=== PATIENT | female | born 1985 | race Caucasian/White ===

== ENCOUNTER 2017-04-04 21:11 | Inpatient (IN) | payer OTHER, MEDICAID ==
[~2017-04-04] VITALS: Ht 162.6 cm; Wt 79.4 kg
[~2017-04-04 21:11] MED LIST: SUCR1S PO
[2017-04-04] MEDS ORDERED: LACTATED RINGER'S 1000 ML INJ 1,000 ML IV PRN (22:10)
[2017-04-04] MEDS ORDERED: LACTATED RINGER'S 1000 ML INJ 1,000 ML IV SCH (22:10)
[2017-04-04] MEDS ORDERED: ONDANSETRON HCL 4 MG/2 ML VIAL IV PUSH PRN (22:15)
[2017-04-04] MEDS ORDERED: CITRIC ACID-SODIUM CITRATE LIQ 30 ML UDC PO SCH (22:15)
[2017-04-04] MEDS ORDERED: OXYTOCIN 30 UNITS-500ML PREMIX 500 ML IV ONE (22:15)
[2017-04-04] MEDS ORDERED: MINERAL OIL 10 ML VIAL TOPICAL PRN (22:15)
[2017-04-04] MEDS ORDERED: LIDOCAINE HCL 1% 50 ML VIAL INFIL PRN (22:15)
[2017-04-04] MEDS ORDERED: LIDOCAINE HCL 1% 50 ML VIAL I-DERMAL PRN (22:15)
[2017-04-04] MEDS ORDERED: SODIUM CHLORID 0.9% 500 ML INJ 500 ML IV PRN (22:15)
[2017-04-04 22:24] LABS: BASOPHIL # 0.1 TH/MM3 (0-0.2); BASOPHIL % 0.4 % (0.0-2.0); EOSINOPHIL # 0.3 TH/MM3 (0-0.4); EOSINOPHIL % 1.7 % (0.0-4.0); HEMATOCRIT 37.1 % (35.0-46.0); HEMO FLAGS DIFF FINAL; LYMPH % 18.2 % (9.0-44.0); LYMPHOCYTE # 3.1 TH/MM3 (1.0-4.8); MEAN CELL VOLUME 96.4 FL (80.0-100.0); MEAN CORPUSCULAR HEMOGLOBIN 32.8 PG (27.0-34.0); MONO % 8.8 % (0.0-8.0); NEUT % 70.9 % (16.0-70.0); PLATELET COUNT 292 TH/MM3 (150-450); RED BLOOD COUNT 3.85 MIL/MM3 (4.00-5.30); RED CELL DISTRIBUTION WIDTH 12.7 % (11.6-17.2)
[2017-04-04 22:25] LABS: BACTERIA, URINE OCC /hpf; BLOOD, URINE TRACE (NEG); COMMENT (UR) CULT NOT INDICATED; CULTURE IF INDICATED CULT NOT INDICATED; GLUCOSE,URINE NEG (NEG); KETONE, URINE NEG (NEG); NITRITE,URINE NEG (NEG); SQUAMOUS EPITHELIAL CELL URINE 1 /hpf (0-5); URINE COLOR LIGHT-YELLOW (YELLW/STRAW)
--- NOTE | 2017-04-04 22:25 | PD ---
HPI Chief Complaint LATRELL brown Date Seen: Apr 04, 2017 Time Seen: 22:17 Travel History International Travel<30 Days: No Contact w/Intl Traveler<30Days: No Known Affected Area: No History of Present Illness HPI Pt is a 31y/o G1 @ 40.1wks. She has PNC with Dr. Ferreira. She presents with c/ o ctx which started at 17:30 and SROM at 20:15 (clear). She reports some spotting since being checked today in clinic (4cm). +FM. is complicated by a choroid plexus cyst which has not completely resolved yet. Weeks Gestation: 40 Para: 0 : 1 Last Menstrual Period: Apr 04, 2017 History Past Medical History Medical History: Denies Significant Hx Obstetric History Obstetric History 1. current Past Surgical History Narrative Surgical wisdom teeth extraction cholecystectomy appendectomy Family History Family History: Negative Social History Alcohol Use: No Tobacco Use: No (quit when she became ) Substance Abuse: No Allergies-Medications (Allergen,Severity, Reaction): Coded Allergies: No Known Allergies (Verified , 01/24/16) Home Meds Reported Medications Sucralfate (Carafate 1 Gm/10 Ml Udc) 1 Gm/10 Ml Susp, 1 GM PO TIDACHS Y for GERD , ML Take with water on an empty stomach. To reduce the potential of adversely affecting the absorption of other drugs, take other drugs 2 hours prior to Sucralfate. 01/21/16 Review of Systems Except as stated in HPI: all other systems reviewed are Neg Physical Exam Narrative GENERAL: Well-nourished, well-developed patient. SKIN: Warm and dry. HEAD: Normocephalic and atraumatic. EYES: No scleral icterus. No injection or drainage. ENT: No nasal drainage noted. Mucous membranes pink. Airway patent. ABDOMEN/GI: Abdomen soft, non-tender, gravid EXTREMITIES: No cyanosis BACK: Nontender without obvious deformity. NEUROLOGICAL: Awake and alert. Motor and sensory grossly within normal limits. FHTs: 120s, +accels, occasional variable decels, moderate variability, reactive TOCO: ctx q2-3m CVX: 6/80/-1 Data Data Vital Signs Reviewed: Yes Orders Orders Ob (2e) Additional Admit Info (04/04/17 21:40) Urinalysis - C+S If Indicated (04/04/17 22:00) Specimen To Be Collected PRN (04/04/17 22:00) Ob/Psych Drug Screen, Urine (04/04/17 22:00) Complete Blood Count With Diff (04/04/17 22:00) Hold Clot (04/04/17 22:00) Abo/Rh Blood Type (04/04/17 22:00) Vital Signs (Adult) .ON ADMISSION (04/04/17 22:10) ^ Labor Status (04/04/17 22:10) ^ Non Stress Test (04/04/17 22:10) Admit To Inpatient (04/04/17 ) Vital Signs (Adult) .Per protocol (04/04/17 22:10) Heart (04/04/17 22:10) Amnioinfusion (04/04/17 22:10) Urinary Catheter Management .ONCE (04/04/17 22:10) Diet Npo (04/05/17 Breakfast) Lactated Ringer's 1000 Ml Inj (Lr 1000 M (04/04/17 22:10) Lactated Ringer's 1000 Ml Inj (Lr 1000 M (04/04/17 22:10) Sodium Chlorid 0.9% 500 Ml Inj (Ns 500 M (04/04/17 22:15) Sodium Chlor 0.9% 1000 Ml Inj (Ns 1000 M (04/04/17 22:30) Lidocaine 1% Inj (50 Ml) (Xylocaine 1% I (04/04/17 22:15) Citric Acid-Sodium Citrate Liq (Bicitra (04/04/17 22:15) Ondansetron Inj (Zofran Inj) (04/04/17 22:15) Fentanyl Inj (Fentanyl Inj) (04/04/17 22:15) Fentanyl Inj (Fentanyl Inj) (04/04/17 22:15) Resp Oxygen Non Rebreathe Mask (04/04/17 ) ^ Epidural / Intrathecal Infus (04/04/17 22:10) Oxytocin 30 Units-500ml Premix (Pitocin (04/04/17 22:15) Lidocaine 1% Inj (50 Ml) (Xylocaine 1% I (04/04/17 22:15) Light Mineral Oil (Muri-Lube Oil) (04/04/17 22:15) Inpatient Certification (04/04/17 ) Group B Strep: Negative Labs Laboratory Tests Test 04/04/17 21:50 MDM Plan 31y/o G1 @ 40.1wks in active labor with ROM. 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 He agrees with plan of care. Courtesy orders placed. He will assume care of the pt. Diagnosis Diagnosis: Primary Impression: Postmaturity , 40-42 weeks gestation Additional Impressions: Uterine contractions during Rupture of membranes with clear amniotic fluid Wendi Blackwell MD Apr 04, 2017 22:25
[2017-04-04] MEDS ORDERED: SODIUM CHLOR 0.9% 1000 ML INJ 1,000 ML IV PRN (22:30)
[2017-04-04] MEDS ORDERED: PREN1CAP28 PO (22:38)
[2017-04-04 22:45] VITALS: RESP 18
[2017-04-04] MEDS ORDERED: fentaNYL 2MCG-BUPIV 0.125% INJ 100 ML ONE (23:57)
[2017-04-05] VITALS (30 sets, daily range): BP systolic 100–122; BP diastolic 60–77; PULSE 68–110; RESP 16–18; TEMP 98.1–98.8
[2017-04-05] MEDS ORDERED: fentaNYL 2MCG-BUPIV 0.125% 100 ML EPIDURAL SCH (00:30)
[2017-04-05] MEDS ORDERED: DO NOT ADMINISTER ANTICOAGULANTS PRN (00:30)
[2017-04-05] MEDS ORDERED: NO SYSTEM NARCOTICS PRN (00:30)
[2017-04-05] MEDS ORDERED: MISOPROSTOL 100 MCG TAB ONE (04:27)
[2017-04-05] MEDS ORDERED: ePHEDrine/NS 25 MG/5 ML SYR IV PUSH PRN (04:30)
--- NOTE | 2017-04-05 04:44 | PD.OB.DELI ---
Weeks gestation: 40 Gest age assessed date: Apr 05, 2017 Gest age assessed time: 00:00 Pt started active labor?: Yes Active labor start date: Apr 05, 2017 Active labor start time: 20:15 Medical induction of labor?: No Artificial rupture of membrane: No Anesthesia: Epidural Episiotomy: Midline Vaginal Delivery: Normal Presentation: Occiput anterior Nuchal Cord: x1 Delayed cord clamping (45 sec): Yes Infant: Female Delivery date: Apr 05, 2017 Delivery time: 00:00 One Minute : 8 Five Minute : 9 Weight: 7/15 Placenta: Spontaneous delivery, Intact, 3 vessel cord Laceration: Episiotomy Repair: Vicryl running Estimated blood loss: 400 Additional Information Nice delivery of Sakshi. Second degree MLE. Moderate bleeding PP and cytotec 600micrograms given per rectum. Duy Ferreira MD Apr 05, 2017 04:44
[2017-04-05] MEDS ORDERED: DOCUSATE SODIUM 50 MG/SENNA 8.6 MG TAB PO PRN (04:45)
[2017-04-05] MEDS ORDERED: ACETAMINOPHEN 325 MG TAB PO PRN (04:45)
[2017-04-05] MEDS ORDERED: oxyCODONE/ACETAMINOPHEN 5 MG/325 MG TAB PO PRN ×2 (04:45)
[2017-04-05] MEDS ORDERED: BENZOCAINE 20% TOPICAL SPRAY 60 ML CAN TOPICAL PRN (04:45)
[2017-04-05] MEDS ORDERED: OXYTOCIN 30 UNITS-500ML PREMIX 500 ML IV ONE (04:45)
[2017-04-05] MEDS ORDERED: SODIUM CHLORIDE 0.9% FLUSH 10 ML FLUSH IV FLUSH PRN (04:45)
[2017-04-05] MEDS ORDERED: ONDANSETRON ODT 4 MG TAB PO PRN (04:45)
[2017-04-05] MEDS ORDERED: MISOPROSTOL 200 MCG TAB RECTAL ONE (04:45)
[2017-04-05] MEDS ORDERED: OXYTOCIN 30 UNITS-500ML PREMIX 500 ML IV SCH (04:45)
[2017-04-05] MEDS ORDERED: IBUPROFEN 600 MG TAB PO PRN (04:45)
[2017-04-05] MEDS ORDERED: ALUMINUM/MAGNESIUM/SIMETH 30 ML CUP PO PRN (04:45)
[2017-04-05] MEDS ORDERED: ZOLPIDEM TARTRATE 5 MG TAB PO PRN (04:45)
[2017-04-05] MEDS ORDERED: WITCH HAZEL 50%/GLYCERIN 12.5% 40 PAD JAR TOPICAL PRN (04:45)
[2017-04-05] MEDS ORDERED: SODIUM CHLORIDE 0.9% FLUSH 10 ML FLUSH IV FLUSH SCH (09:00)
[2017-04-05] MEDS ORDERED: MEASLES, MUMPS, RUBELLA VACCINE 0.5 ML VIAL SQ ONE (16:00)
[2017-04-05] MEDS ORDERED: DIPHTH/TETANUS/ACEL PERTUSSIS (BOOSTER) 0.5 ML VIAL/PFS IM ONE (16:00)
[2017-04-06 08:25] VITALS: BP 107/68; PULSE 70; RESP 12; TEMP 98.5
--- NOTE | 2017-04-06 13:10 | HHI.DCPOC ---
Discharge Care Plan Diagnosis: (1) Normal spontaneous vaginal delivery Your Health Problems Are: Vaginal delivery Report Symptoms to Your Doctor -Temperature above 100.5 degrees -Redness, of incision or excessive or foul smelling drainage -Unusual pain or calf pain -Increased vaginal bleeding -Painful or difficulty urinating -Feelings of extreme sadness or anxiety after 2 weeks Goals to Promote Your Health * To prevent worsening of your condition and complications * To maintain your health at the optimal level Directions to Meet Your Goals Take your medications as prescribed Follow your dietary instruction Follow activity as directed Ensure plenty of rest for recovery Drink fluids for hydration Keep your appointments as scheduled Take your immunizations and boosters as scheduled If your symptoms worsen call your PCP, if no PCP go to Urgent Care Center or Emergency Room Smoking is Dangerous to Your Health. Avoid second hand smoke Call the 24-hour crisis hotline for domestic abuse at Duy Ferreira MD Apr 06, 2017 13:10
--- NOTE | 2017-04-06 13:13 | HHI.DS ---
Admission Date Apr 04, 2017 at 21:41 Discharge Date: Apr 06, 2017 Admitting Diagnosis Diagnosis: (1) Normal spontaneous vaginal delivery Diagnosis: Principal ICD Codes: O80 - Encounter for full-term uncomplicated delivery Delivery Date: Apr 05, 2017 Vaginal Delivery: Normal Infant: Female Brief History Pt is a 31y/o G1 @ 40.1wks. She has PNC with Dr. Ferreira. She presents with c/ o ctx which started at 17:30 and SROM at 20:15 (clear). She reports some spotting since being checked today in clinic (4cm). +FM. is complicated by a choroid plexus cyst which has not completely resolved yet. LABOR Hospital Course 40 WEEKS, LABOR SROM LABOR Pt Condition on Discharge: Good Discharge Disposition: Discharge Home Discharge Instructions Diet Instructions: As Tolerated, No Restrictions Additional Diet Instructions: Drink at least 8 - 16 oz bottles of water a day Activities You Can Perform: Shower Only-No Bath, Sitz Bath Activities to Avoid: Lifting/Bending, Sexual Activity Additional Activity Instruc.: No driving until off pain medications Do not lift anything heavier than your baby in an carrier Follow up Referrals: [facility] - 2 Weeks @ [facility] Duy Ferreira MD Apr 06, 2017 13:13
--- NOTE | 2017-04-06 13:17 | HHI.OB ---
Subjective Post Day: 1 Objective Vitals/I&O Vital Signs Date Time Temp Pulse Resp B/P (MAP) Pulse Ox O2 Delivery O2 Flow Rate FiO2 04/06/17 08:25 98.5 70 12 107/68 (81) 04/05/17 20:05 98.6 91 16 108/68 (81) 04/05/17 17:45 98.8 85 16 112/68 (83) Objective Remarks GENERAL: Well-nourished, well-developed patient. CARDIOVASCULAR: Regular rate and rhythm without murmurs, gallops, or rubs. RESPIRATORY: Breath sounds equal bilaterally. No accessory muscle use. ABDOMEN/GI: Abdomen soft, non-tender. Fundus: Firm, non-tender at umbilicus. GENITOURINARY: Light to moderate bleeding. EXTREMITIES: No cyanosis or edema, non-tender, without signs of DVT. Medications and IVs Current Medications Medications (Trade) Dose Ordered Sig/Dejon Route Start Time Stop Time Status Last Admin (NS Flush) 2 ml BID IV FLUSH 04/05/17 09:00 (NS Flush) 2 ml UNSCH PRN IV FLUSH 04/05/17 04:45 (Tylenol) 650 mg Q4H PRN PO 04/05/17 04:45 (Motrin) 600 mg Q6H PRN PO 04/05/17 04:45 (Percocet 5-325 Mg) 1 tab Q4H PRN PO 04/05/17 04:45 (Percocet 5-325 Mg) 2 tab Q4H PRN PO 04/05/17 04:45 (Americaine 20% Top Spr) 1 spray Q4H PRN TOPICAL 04/05/17 04:45 04/06/17 08:29 (Tucks Pads) 1 applic QID PRN TOPICAL 04/05/17 04:45 04/06/17 08:29 (Dia-Colace) 2 tab Q12H PRN PO 04/05/17 04:45 (Ambien) 5 mg HS PRN PO 04/05/17 04:45 (Mag-Al Plus Susp Liq) 15 ml Q8H PRN PO 04/05/17 04:45 (Zofran Odt) 4 mg Q6H PRN PO 04/05/17 04:45 Assessment/Plan Problem List: (1) Normal spontaneous vaginal delivery ICD Codes: O80 - Encounter for full-term uncomplicated delivery Assessment and Plan PT DOING WELL NOT TAKING ANYTHING FOR PAIN AT THIS TIME BONDING WITH INFANT ROUTINE CARE Discharge Planning DC HOME TODAY Attending Attestation PT SEEN WITH EDD WELLS WHO IS COMPLETING NOTE Duy Ferreira MD Apr 06, 2017 13:17
[2017-04-06] MEDS ORDERED: MEASLES, MUMPS, RUBELLA VACCINE 0.5 ML VIAL SQ ONE (14:45)
[2017-04-09 07:24] LABS: BATH SALTS (MDPV) UR NEG (NEG); ECSTASY (MDMA) UR NEG (NEG); GABAPENTIN UR NEG (NEG); HEROIN (6-ACETYLMORPHINE) UR NEG (NEG); HYDROMORPHONE U NEG (NEG); K2 SPICE UR NEG (NEG); OBMETHADONE UR NEG (NEG); PHENCYCLIDINE URINE NEG (NEG)
== END 2017-04-06 15:56 | disposition home or self-care (01) | DRG 775 ==
LOC: HOBED 21:11 → H2EA 21:41 → H1EA 04-05 06:08
PROVIDERS: ADMIT Obstetrics & Gynecology; ATTEND Obstetrics & Gynecology
PROC: 10E0XZZ Delivery of Products of Conception, External Approach (ICD-10-PCS; principal; 2017-04-05)
PROC: 0W8NXZZ Division of Female Perineum, External Approach (ICD-10-PCS; 2017-04-05)
DX: O48.0 Post-term pregnancy (principal); O69.81X0 Labor and delivery complicated by cord around neck, without compression, not applicable or unspecified; Z37.0 Single live birth; Z87.891 Personal history of nicotine dependence; Z3A.40 40 weeks gestation of pregnancy
CPT/HCPCS: 59025; 80307; 81001; 85025; 86900; 86901; 90707; G0481; J2590